=== PATIENT | female | born 2000 | race Caucasian/White ===

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

== ENCOUNTER 2021-10-19 13:41 | Emergency (ER) | payer BC, MEDICAID ==
[2021-10-19] MEDS ORDERED: methylPREDNISolone SOD SUCCI 125 MG/2 ML VIAL IV STA (16:26)
[2021-10-19] MEDS ORDERED: diphenhydrAMINE 50 MG/ML 1 ML VIAL IVP STA (16:26)
[2021-10-19] MEDS ORDERED: SODIUM CHLORIDE 0.9% 1,000 ML IV STA (16:26)
[2021-10-19] MEDS ORDERED: FAMOTIDINE 20 MG/2 ML VIAL IV STA (16:26)
--- NOTE | 2021-10-19 16:33 | ED ---
Allergic Reaction HPI - General Chief complaint: Allergic Reaction Stated complaint: med reaction, throat & tongue swelling Time Seen by Provider: 10/19/21 16:18 Source: patient, family, RN notes reviewed Mode of arrival: ambulatory Limitations: no limitations - History of Present Illness Initial Comments: This is a 21-year-old female who presents to the emergency department for an allergic reaction. Patient states that she was restarted on amitriptyline yesterday for migraines. Prior to this she had been off of it for 3 years after previously taking it for one year. When she was taking it for one year, it completely treated the migraines that she had. She was then weaned off of the medication because the migraines had resolved. They then started slowly coming back to the point of occurring each day, which was the reason for restarting the amitriptyline. She did not have any problems when first taking the medication 3 years ago, however after she took it yesterday, she began to develop tingling of the tongue and throat tightness. She took a Benadryl and the symptoms subsided. She then took another dose this morning, and shortly after she again began to experience tingling of the tongue, throat tightness and chest tightness. She took a Benadryl, however her symptoms have not improved and she continues to feel these sensations. She notes that the Benadryl she took was and believes that is why it did not work. She has never taken anything else for her migraines and she has never been on any abortive medication such as sumatriptan. Denies coming into contact with any additional new medications or other substances. Denies any fevers, chills, sore throat, cough, chest pain, palpitations, abdominal pain, nausea, vomiting, diarrhea, or back pain. MD Complaint: allergic reaction Onset/Timin -: days(s) Exposure: medication Treatment Prior to Arrival: benadryl - Related Data Home Medications Medication Instructions Recorded Confirmed EPINEPHrine (Auto Inject) [Epipen] 0.3 mg IM ONCE PRN 10/19/21 10/19/21 Multivitamin [Multivitamins Adult 2 tab PO DAILY 10/19/21 10/19/21 Gummies] Vitamin C(Unknown) 1 tab PO DAILY 10/19/21 10/19/21 Vitamin D3(Unknown) 1 tab PO DAILY 10/19/21 10/19/21 Zinc(Unknown) 0.5 tab PO DAILY 10/19/21 10/19/21 diphenhydrAMINE HCL [Benadryl] 50 mg PO Q6H PRN 10/19/21 10/19/21 Previous Rx's Medication Instructions Recorded Propranolol [Inderal] 40 mg PO BID #30 tab 10/19/21 SUMAtriptan succinate [Imitrex] 50 mg PO ONCE PRN #30 tablet 10/19/21 Allergies Allergy/AdvReac Type Severity Reaction Status Date / Time amoxicillin Allergy Anaphylaxis Verified 10/19/21 17:07 amitriptyline [From Elavil] AdvReac Dyspnea Verified 10/19/21 17:07 Review of Systems ROS Statement: Those systems with pertinent positive or pertinent negative responses have been documented in the HPI. ROS Other: All systems not noted in ROS Statement are negative. Past Medical History Past Medical History: No Reported History History of Any Multi-Drug Resistant Organisms: None Reported Past Surgical History: No Surgical Hx Reported Past Psychological History: No Psychological Hx Reported Smoking Status: Never smoker Past Alcohol Use History: None Reported Past Drug Use History: None Reported General Exam Limitations: no limitations General appearance: alert, in no apparent distress Head exam: Present: atraumatic, normocephalic, normal inspection ENT exam: Present: normal exam, mucous membranes moist Neck exam: Present: normal inspection. Absent: tenderness, meningismus, lymphadenopathy Respiratory exam: Present: normal lung sounds bilaterally. Absent: respiratory distress, wheezes, rales, rhonchi, stridor Cardiovascular Exam: Present: regular rate, normal rhythm, normal heart sounds. Absent: systolic murmur, diastolic murmur, rubs, gallop, clicks Neurological exam: Present: alert, oriented X3, CN II-XII intact Psychiatric exam: Present: normal affect, normal mood Skin exam: Present: warm, dry, intact, normal color. Absent: rash Course Vital Signs 10/19/21 10/19/21 14:12 17:49 Temperature 97.9 F 97.7 F Pulse Rate 86 65 Respiratory 16 18 Rate Blood Pressure 117/64 113/75 O2 Sat by Pulse 98 98 Oximetry Medical Decision Making - Medical Decision Making This is a 21-year-old female who presents to the emergency department for an allergic reaction. Given that this occurred shortly after 2 doses of the amitriptyline, it is very possible that this is the culprit. Patient treated with IV fluids, and Solu-Medrol, Pepcid, and Benadryl. States that her symptoms resolved after receiving the IV fluids and medication. She was instructed to stop taking the amitriptyline for the migraines. Prescription for propranolol and sumatriptan sent to the pharmacy. Instructed her to take the propranolol daily and the sumatriptan at the onset of a migraine. Sumatriptan can be repeated in 2 hours if the migraine does not resolve. This may or may not be effective for her, she can further discuss this with her primary care provider. Advise she keep Benadryl on hand as well in the event she experiences a reaction in the future. Return precautions reviewed in depth, the patient is instructed to return to the emergency department with any new, worsening, or concerning symptoms. Patient verbalized understanding. This case was discussed in detail with the attending ED physician. Presentation, findings, and treatment plan discussed in detail as well. - Lab Data Result diagrams: 10/19/21 16:45 10/19/21 16:45 Lab Results 10/19/21 10/19/21 Range/Units 16:45 16:45 WBC 6.8 (4.0-11.0) k/uL RBC 4.23 (3.80-5.40) m/uL Hgb 12.7 (11.4-16.0) gm/dL Hct 38.7 (34.0-46.0) % MCV 91.7 (80.0-100.0) fL MCH 30.1 (25.0-35.0) pg MCHC 32.8 (31.0-37.0) g/dL RDW 13.2 (11.5-15.5) % Plt Count 224 (150-450) k/uL MPV 8.2 Neutrophils % 49 % Lymphocytes % 40 % Monocytes % 6 % Eosinophils % 1 % Basophils % 1 % Neutrophils # 3.3 (1.3-7.7) k/uL Lymphocytes # 2.7 (1.0-4.8) k/uL Monocytes # 0.4 (0-1.0) k/uL Eosinophils # 0.1 (0-0.7) k/uL Basophils # 0.0 (0-0.2) k/uL Sodium 138 (137-145) mmol/L Potassium 4.2 (3.5-5.1) mmol/L Chloride 105 (98-107) mmol/L Carbon Dioxide 22 (22-30) mmol/L Anion Gap 11 mmol/L BUN 16 (7-17) mg/dL Creatinine 0.85 (0.52-1.04) mg/dL Est GFR (CKD-EPI)AfAm >90 (>60 ml/min/1.73 sqM) Est GFR (CKD-EPI)NonAf >90 (>60 ml/min/1.73 sqM) Glucose 91 (74-99) mg/dL Calcium 9.3 (8.4-10.2) mg/dL Total Bilirubin 0.2 (0.2-1.3) mg/dL AST 23 (14-36) U/L ALT 18 (4-34) U/L Alkaline Phosphatase 53 (38-126) U/L Total Protein 6.7 (6.3-8.2) g/dL Albumin 4.3 (3.5-5.0) g/dL Disposition Clinical Impression: Allergic reaction to drug Disposition: HOME SELF-CARE Instructions (If sedation given, give patient instructions): Migraine Headache (ED), Allergies (ED) Additional Instructions: Return to the emergency department with any new, worsening, or concerning symptoms. Start taking the propranolol twice daily for migraine prevention. Stop taking the amitriptyline. Take a sumatriptan at the first sign of a migraine, you may repeat this in 2 hours if symptoms do not improve.. Also be sure to keep Benadryl with you at all times in the event you have another reaction. Follow up with your primary care provider this week. Prescriptions: SUMAtriptan succinate [Imitrex] 50 mg PO ONCE PRN #30 tablet PRN Reason: Migraine Headache Propranolol [Inderal] 40 mg PO BID #30 tab Is patient prescribed a controlled substance at d/c from ED?: No Referrals: Noy Ta MD [Primary Care Provider] - 1-2 days
[2021-10-19 16:54] LABS: Basophils % (A) 1 %; Eosinophils # (A) 0.1 k/uL (0-0.7); Eosinophils % (A) 1 %; HCT 38.7 % (34.0-46.0); HGB 12.7 gm/dL (11.4-16.0); Lymphocytes # (A) 2.7 k/uL (1.0-4.8); Lymphocytes % (A) 40 %; MCH 30.1 pg (25.0-35.0); MCHC 32.8 g/dL (31.0-37.0); MCV 91.7 fL (80.0-100.0); Mean Platelet Volume 8.2; Monocytes # (A) 0.4 k/uL (0-1.0); Monocytes % (A) 6 %; Neutrophils # (A) 3.3 k/uL (1.3-7.7); Neutrophils % (A) 49 %; Platelet Count 224 k/uL (150-450); RBC 4.23 m/uL (3.80-5.40); RDW 13.2 % (11.5-15.5); WBC 6.8 k/uL (4.0-11.0)
[2021-10-19 17:04] LABS: ALT 18 U/L (4-34); AST 23 U/L (14-36); African American GFR (CKD) >90 (>60 ml/min/1.73 sqM); Albumin 4.3 g/dL (3.5-5.0); Alkaline Phosphatase 53 U/L (38-126); Anion Gap 11 mmol/L; Blood Urea Nitrogen 16 mg/dL (7-17); Calcium 9.3 mg/dL (8.4-10.2); Carbon Dioxide 22 mmol/L (22-30); Chloride 105 mmol/L (98-107); Glucose 91 mg/dL (74-99); Non-African American GFR(CKD) >90 (>60 ml/min/1.73 sqM); Potassium 4.2 mmol/L (3.5-5.1); Sodium 138 mmol/L (137-145); Total Bilirubin 0.2 mg/dL (0.2-1.3); Total Protein 6.7 g/dL (6.3-8.2)
[2021-10-19 17:50] VITALS: BP 113/75; PULSE 65; RESP 18; TEMP 97.7
== END 2021-10-19 17:49 | disposition home or self-care (01) ==
LOC: EC 13:41
DX: R07.89 Other chest pain (principal); R20.2 Paresthesia of skin; R22.1 Localized swelling, mass and lump, neck; T43.015A Adverse effect of tricyclic antidepressants, initial encounter; Z88.0 Allergy status to penicillin
CPT/HCPCS: 36415; 80053; 85025; 99284; 96374; 96375; J1200; J2930